=== PATIENT | male | born 1990 | race Caucasian/White ===

== ENCOUNTER 2024-04-30 10:24 | Emergency (ER) | payer BC ==
[~2024-04-30] VITALS: Ht 188 cm; Wt 97.0 kg
[2024-04-30 10:31] VITALS: O2SAT 98
[2024-04-30 11:18] LABS: CLARITY URINE CLEAR (CLEAR); COLOR URINE YELLOW (YELLOW); GLUCOSE URINE NEGATIVE (NEGATIVE); KETONES URINE TRACE (NEGATIVE); LEUKOCYTE ESTERASE URINE NEGATIVE (NEGATIVE); NITRITE URINE NEGATIVE (NEGATIVE); OCCULT BLOOD URINE NEGATIVE (NEGATIVE); PH URINE 6.5 (4.5-8.0); PROTEIN URINE NEGATIVE (NEGATIVE); SPECIFIC GRAVITY URINE 1.022 (1.005-1.030)
[2024-04-30 11:29] LABS: BASOPHILS % 1.1 % (0.0-2.0); CHLORIDE 104 mEq/L (98-107); EOSINOPHILS % 1.2 % (0.0-5.0); HEMOGLOBIN. 14.5 g/dL (14.0-18.0); LYMPHOCYTES % 32.5 % (20.0-50.0); MEAN CORPUSCULAR HGB CONC 33.8 g/dL (31.0-37.0); MEAN CORPUSCULAR VOLUME 91.8 fL (80.0-94.0); MEAN PLATELET VOLUME 7.8 fl (7.4-10.4); MONOCYTES % 8.7 % (2.0-8.0); NEUTROPHILS % 56.5 % (40.0-76.0); PLATELET 277 x1000/uL (130-400); POTASSIUM 4.2 mEq/L (3.5-5.1); RED BLOOD CELL COUNT 4.69 mill/uL (4.7-6.1); SODIUM 139 mEq/L (136-145)
[2024-04-30 11:30] LABS: CALCIUM 9.8 mg/dL (8.7-10.4); CARBON DIOXIDE 31 mEq/L (21-32)
[2024-04-30 11:32] LABS: PROTHROMBIN TIME 10.8 sec (9.6-11.0)
[2024-04-30 11:35] LABS: CREATININE 1.1 mg/dL (0.6-1.3); GLUCOSE 98 mg/dL (70-105)
[2024-04-30 11:36] LABS: UREA NITROGEN BLOOD 10 mg/dL (9-23)
[2024-04-30 11:37] LABS: CREATINE KINASE 147 IU/L (46-171)
[2024-04-30 11:38] LABS: PHOSPHORUS 2.6 mg/dL (2.5-4.9); TROPONIN I HIGH SENSITIVITY 5 ng/L (3.0-53)
[2024-04-30 11:41] LABS: T4 FREE 1.29 ng/dL (0.89-1.76)
[2024-04-30 11:42] LABS: ETHANOL BLOOD < 10 mg/dL (<10); THYROID STIMULATING HORMONE 6.33 uIU/mL (0.55-4.78)
[2024-04-30 11:53] LABS: *AMPHETAMINES SCREEN URINE NEGATIVE (NEGATIVE); *BARBITURATES SCREEN URINE NEGATIVE (NEGATIVE); *BENZODIAZEPINES SCREEN URINE NEGATIVE (NEGATIVE); *COCAINE SCREEN URINE NEGATIVE (NEGATIVE); CANNABINOID URINE SCREEN NEGATIVE (NEGATIVE); ECSTASY MDMA SCREEN URINE NEGATIVE (NEGATIVE); METHADONE URINE SCREEN NEGATIVE (NEGATIVE); OPIATES URINE SCREEN NEGATIVE (NEGATIVE); PHENCYCLIDINE URINE SCREEN NEGATIVE (NEGATIVE)
[2024-04-30 19:51] VITALS: BP 136/79; PULSE 65; RESP 20; TEMP 98.7
[2024-04-30] MEDS ORDERED: IOHEXOL-350 100 ML BOTTLE ONE (23:08)
== END 2024-04-30 19:55 | disposition home or self-care (01) ==
LOC: ER 10:24
DX: R20.2 Paresthesia of skin (principal); Z98.890 Other specified postprocedural states
CPT/HCPCS: 80305; 80048; 81003; 80320; 82550; 83880; 84439; 83690; 83735; 84100; 84443; 85025; 85610; 84484; 36415; 93971; 74174; 71045; 71275; 70450; 93005; 99285; Q9967; G0480

== ENCOUNTER 2025-08-27 19:19 | Emergency (ER) | payer BC ==
[~2025-08-27] VITALS: Ht 185.4 cm; Wt 97.0 kg
[2025-08-27 20:27] VITALS: O2SAT 99
[2025-08-27 20:30] LABS: BASOPHILS % 0.8 % (0.0-2.0); EOSINOPHILS % 0.8 % (0.0-5.0); HEMATOCRIT. 44.7 % (42.0-52.0); HEMOGLOBIN. 15.3 g/dL (14.0-18.0); LYMPHOCYTES % 32.3 % (20.0-50.0); MEAN PLATELET VOLUME 7.6 fl (7.4-10.4); MONOCYTES % 8.6 % (2.0-8.0); NEUTROPHILS % 57.5 % (40.0-76.0); PLATELET 299 x1000/uL (130-400); RED BLOOD CELL COUNT 4.95 mill/uL (4.7-6.1); RED CELL DISTRIBUTION WIDTH 13.0 % (11.6-14.6)
[2025-08-27 20:42] LABS: CREATININE 1.1 mg/dL (0.6-1.3); UREA NITROGEN BLOOD 15 mg/dL (9-23)
[2025-08-27 20:44] LABS: ASPARTATE AMINOTRANSFERASE 31 IU/L (<34); BILIRUBIN DIRECT 0.1 mg/dL (<=3.0)
[2025-08-27 20:45] LABS: BILIRUBIN TOTAL 0.6 mg/dL (0.1-1.0); PROTEIN TOTAL 8.4 g/dL (6.0-8.3)
[2025-08-27 20:51] LABS: CLARITY URINE CLEAR (CLEAR); COLOR URINE YELLOW (YELLOW); GLUCOSE URINE NEGATIVE (NEGATIVE); KETONES URINE TRACE (NEGATIVE); LEUKOCYTE ESTERASE URINE NEGATIVE (NEGATIVE); NITRITE URINE NEGATIVE (NEGATIVE); OCCULT BLOOD URINE NEGATIVE (NEGATIVE); PH URINE 6.5 (4.5-8.0); PROTEIN URINE NEGATIVE (NEGATIVE); SPECIFIC GRAVITY URINE 1.027 (1.005-1.030); UROBILINOGEN URINE 0.2 E.U./dL (0.2-1.0)
[2025-08-27] MEDS: FAMOTIDINE 20MG TABLET PO ONE (23:27)
[2025-08-28] MEDS ORDERED: FAMO-135 MT (01:02)
[2025-08-28] MEDS ORDERED: DICY-18 MT (01:02)
[2025-08-28] MEDS: VISCOUS LIDOCAINE 2% 15 ML UDC MM NR (02:33)
[2025-08-28] MEDS: ACETAMINOPHEN 325MG TABLET PO NR (02:33)
[2025-08-28] MEDS: MAGNESIUM/ALUMINUM HYDROXIDE/SIMETHICONE 30ML UDC PO NR (02:33)
[2025-08-28 02:35] VITALS: BP 127/85; PULSE 65; RESP 15; TEMP 36.5; O2SAT 100
== END 2025-08-28 02:40 | disposition home or self-care (01) ==
LOC: ER 19:19
DX: R10.13 Epigastric pain (principal); Z79.899 Other long term (current) drug therapy
CPT/HCPCS: 36415; 71045; 80048; 80076; 81003; 85025; 93005; 99285